=== PATIENT | male | born 1990 | race Caucasian/White ===

== ENCOUNTER 2022-11-16 19:19 | Emergency (ER) | payer BC ==
[~2022-11-16] VITALS: Ht 167.6 cm; Wt 90.7 kg
[2022-11-16] MEDS ORDERED: IV NS 1000 ML 1,000 ML IV ONE (19:45)
[2022-11-16] MEDS ORDERED: HYDROMORPHONE 1 MG/1 ML DISP.SYRIN IV ONE (19:45)
[2022-11-16] MEDS ORDERED: KETOROLAC TROMETHAMINE 30 MG INJ IVP ONE (19:45)
[2022-11-16] MEDS ORDERED: ONDANSETRON 4 MG/2 ML VIAL IV ONE (19:45)
[2022-11-16 20:00] LABS: HEMATOCRIT 45.8 % (36.7-47.1); MEAN CORPUSCULAR HEMOGLOBIN 30.7 uug (23.8-33.4); MEAN CORPUSCULAR VOLUME 89.8 fL (73.0-96.2); PLATELET COUNT (AUTO) 277 K/uL (152-348)
[2022-11-16 20:10] LABS: CREATININE 1.3 mg/dL (0.6-1.3); POTASSIUM 4.3 mmol/L (3.5-5.1)
[2022-11-16] MEDS ORDERED: HYDROMORPHONE 1 MG/1 ML DISP.SYRIN ONE (20:49)
[2022-11-16] MEDS ORDERED: ONDANSETRON 4 MG/2 ML VIAL ONE (20:49)
[2022-11-16] MEDS ORDERED: KETOROLAC TROMETHAMINE 30 MG INJ ONE (20:49)
--- NOTE | 2022-11-16 21:55 | NUR ---
Pt provided urine sample, sent to lab.
[2022-11-16 22:10] LABS: *BILIRUBIN,URIN 1+ (NEGATIVE); *BLOOD, URINE 3+ (NEGATIVE); *CLARITY,URINE CLEAR (CLEAR); *COLOR,URINE YELLOW (YELLOW); *KETONES,URINE 1+ (NEGATIVE); *UROBILINOGEN,URINE 0.2 E.U./dl (NORMAL); LEUKOCYTE ESTERASE ,URINE NEGATIVE (NEGATIVE); NITRITE, URINE NEGATIVE (NEGATIVE); UGLUCOSE NEGATIVE (NEGATIVE)
[2022-11-16 23:27] LABS: BACTERIA,URINE FEW /HPF (NONE SEEN); SQUAMOUS EPITHELIAL CELL,UR FEW /HPF (NONE SEEN); WBC,URINE NONE SEEN /HPF (0-3)
[2022-11-17] MEDS ORDERED: HYDR-3980 PO (01:25)
[2022-11-17] MEDS ORDERED: PROC-11 PO (01:25)
[2022-11-17] MEDS ORDERED: KETO10TA2 PO (01:25)
--- NOTE | 2022-11-17 02:05 | NUR ---
Patient discharged to home in stable condition. A/O x 4. NAD noted. Ambulatory with a steady gait. All belongings with pt. Written and verbal after care instructions given. Patient verbalizes understanding of instructions. Stressed follow up or return to ER for worsening s/s.
[2022-11-17 02:07] VITALS: BP 135/89
== END 2022-11-17 02:04 | disposition home or self-care (01) ==
LOC: ER 19:19
DX: N20.2 Calculus of kidney with calculus of ureter (principal); R31.29 Other microscopic hematuria
CPT/HCPCS: 99284; 96374; 96375; 96361; 80048; 81001; 85025; 36415; 87040; J1885; J2405; J1170; J7040; A4663